=== PATIENT | male | born 1980 | race Caucasian/White ===

== ENCOUNTER 2019-10-20 21:34 | Emergency (ER) | payer SELFPAY ==
[2019-10-20] MEDS ORDERED: ACETAMINOPHEN 325 MG TABLET PO ONE (22:32)
--- NOTE | 2019-10-20 22:32 | ER Document Report ---
ED Medical Screen (RME) - General Chief Complaint: Abscess Stated Complaint: ABSCESS Time Seen by Provider: 10/20/19 22:31 Notes: 39-year-old male presents with abscess to the left upper forearm that is been present for the past few days. Approximately 3 cm abscess seen with mild erythema. Is afebrile. No trailing seen or track peng. Patient denies any IV drug use, diabetes, HIV. I have greeted and performed a rapid initial assessment of this patient. A comprehensive ED assessment and evaluation of the patient, analysis of test results and completion of the medical decision making process with be conducted by additional ED providers. Past Medical History - Social History Frequency of alcohol use: None Physical Exam - Vital signs Vitals: Temp Pulse Resp BP Pulse Ox 98.3 F 87 16 131/89 H 99 10/20/19 21:50 10/20/19 21:50 10/20/19 21:50 10/20/19 21:50 10/20/19 21:50 Course - Vital Signs Vital signs: Temp Pulse Resp BP Pulse Ox 98.3 F 87 16 131/89 H 99 10/20/19 22:23 10/20/19 22:23 10/20/19 22:23 10/20/19 22:23 10/20/19 22:23
[2019-10-21] MEDS ORDERED: LIDOCAINE 2% INJ (20 MG/ML) 20 ML MDV INJ ONE (01:05)
[2019-10-21] MEDS ORDERED: SULFAMETHOXAZOLE/TRIMETHOPRIM 800-160 MG TABLET PO ONE (01:07)
[2019-10-21] MEDS ORDERED: CEPHALEXIN 500 MG CAPSULE PO ONE (01:07)
--- NOTE | 2019-10-21 01:09 | ER Document Report ---
ED General - General Chief Complaint: Abscess Stated Complaint: ABSCESS Time Seen by Provider: 10/20/19 22:31 Mode of Arrival: Ambulatory Information source: Patient Notes: 39-year-old male presents to the emergency department with a complaint of an area of swelling and tenderness in his right antecubital area. After some discussion he does admit that he was injecting illicit drugs into the area. It has become red and swollen over the past few days. He denies fever, chills, nausea vomiting. He also notes that he has had a history of MRSA in the past. - Related Data Allergies/Adverse Reactions: acetaminophen [From Vicodin] Allergy (Verified 10/20/19 23:28) hydrocodone [From Vicodin] Allergy (Verified 10/20/19 23:28) Past Medical History - Social History Smoking Status: Current Every Day Smoker Frequency of alcohol use: None Family History: Reviewed & Not Pertinent Patient has suicidal ideation: No Patient has homicidal ideation: No Review of Systems - Review of Systems Notes: Constitutional: Negative for fever. HENT: Negative for sore throat. Eyes: Negative for visual changes. Cardiovascular: Negative for chest pain. Respiratory: Negative for shortness of breath. Gastrointestinal: Negative for abdominal pain, vomiting or diarrhea. Genitourinary: Negative for dysuria. Musculoskeletal: Negative for back pain. Skin: Raised area of erythema and mild fluctuance in the left lateral antecubital region. Neurological: Negative for headaches, weakness or numbness. 10 point ROS negative except as marked above and in HPI. Physical Exam - Vital signs Vitals: Temp Pulse Resp BP Pulse Ox 98.3 F 87 16 131/89 H 99 10/20/19 21:50 10/20/19 21:50 10/20/19 21:50 10/20/19 21:50 10/20/19 21:50 - Notes Notes: Physical Exam: Well-nourished well-developed man in no acute distress HEENT: NC/AT, pupils equal round and reactive to light, MM moist,nares clear, Neck: supple, no adenopathy, no masses. Lungs: clear, no wheezing, no rales no rhonchi CVS: Regular rate and rhythm no murmur gallop or rub Abdomen: Soft active nontender, no masses, no hepatosplenomegaly Ext: No edema clubbing or cyanosis. Neuro: Alert and responsive, moving all 4 extremities on command, cranial nerves intact. Skin: 3 cm oval-shaped raised lesion in the left antecubital region., Fluctuant, mild erythema. There are track peng noted in the antecubital region from previous injections. PSYCH: Normal mood, normal affect. Course - Re-evaluation Re-evalutation: 10/21/19 01:11 Incision and drainage procedure is performed on the left antecubital region, culture is obtained, patient is placed on oral antibiotics and instructed to not inject his antecubital regions in the future. He is also instructed to follow-u p with his primary care doctor as needed or return to the emergency department. - Vital Signs Vital signs: Temp Pulse Resp BP Pulse Ox 98.8 F 72 20 151/67 H 98 10/21/19 03:18 10/21/19 03:18 10/21/19 03:18 10/21/19 03:18 10/21/19 03:18 Procedures - Incision and Drainage Left Arm Time completed: 01:20 Type: Simple Anesthetic type: 2% Lidocaine mL's of anesthetic: 5 Blade size: 11 I&D procedure: Betadine prep applied, Iodoform packing placed Incision Method: Incision made by scalpel Notes: 10/21/19 01:14 4 mL of purulent drainage obtained from the incision and drainage site. Discharge - Discharge Clinical Impression: Cutaneous abscess of left upper extremity Condition: Good Disposition: HOME, SELF-CARE Instructions: Abscess ([facility]), Cephalexin ([facility]), Post Incision and Drainage, Trimethoprim-Sulfa ([facility]) Additional Instructions: You were seen for an abscess that required drainage. Please clean this area with soap and water twice daily and apply a topical antibiotic. Dress the area after each cleaning. Please return if you develop fever, vomiting, the pain at the site worsens, you notice spreading redness from the area, or you have any other symptoms that are concerning to you. Prescriptions: Sulfamethoxazole/Trimethoprim [Bactrim Ds Tablet] 1 tab PO BID #28 tablet Cephalexin Monohydrate [Keflex 500 mg Capsule] 500 mg PO TID 10 Days capsule
[2019-10-21 03:17] VITALS: BP 151/67
== END 2019-10-21 03:19 | disposition home or self-care (01) ==
LOC: ER 21:34
PROC: 0H9EXZZ Drainage of Left Lower Arm Skin, External Approach (ICD-10-PCS; principal; 2019-10-20)
DX: L02.414 Cutaneous abscess of left upper limb (principal); F17.200 Nicotine dependence, unspecified, uncomplicated
CPT/HCPCS: 99282; 10060; J3490